=== PATIENT | male | born 1950 | race Hispanic/Latino ===

== ENCOUNTER → 2023-12-15 | Outpatient (CLI) | payer OTHER ==
[~2023-12-15] MED LIST: IOHEXOL-350 75 ML VIAL IV ONE
== END | disposition home or self-care (01) ==
LOC: RAH 10:45
PROVIDERS: ATTEND Internal Medicine
DX: K83.1 Obstruction of bile duct (principal)
CPT/HCPCS: 74170; Q9967

== ENCOUNTER → 2025-01-24 | Outpatient (CLI) | payer OTHER ==
[~2025-01-24] MED LIST changes: +IOHEXOL 350 MG/ML 100ML INFUS..BTL IV ONE; -IOHEXOL-350 75 ML VIAL IV ONE
--- NOTE | 2025-01-25 02:14 | HMCIMG ---
EXAM: CT Abdomen With and Without IV Contrast CLINICAL HISTORY: Other chronic pancreatitis; obstruction of bile duct. TECHNIQUE: Axial CT images of the abdomen and pelvis obtained before and after intravenous contrast administration. CONTRAST: With and without intravenous contrast. COMPARISON: None provided. FINDINGS Lung Bases Chronic dependent interstitial changes with subpleural ground-glass opacities and fine reticulation in the bilateral lower lobes. No pleural effusion. No focal consolidation. Liver Normal size and parenchymal attenuation. Pneumobilia within the left hepatic lobe. No focal lesion. Gallbladder and Bile Ducts Gallbladder nondistended with normal wall. Air within the gallbladder, cystic duct, and common bile duct consistent with pneumobilia. No radiopaque gallstones. No intrahepatic or extrahepatic biliary dilatation. Pancreas Parenchymal contours preserved. No acute peripancreatic fluid or necrosis. No calcifications. Spleen Normal size and enhancement. Adrenal Glands Normal bilaterally. Kidneys, Ureters, and Bladder Kidneys symmetrical with preserved cortical thickness. No hydronephrosis, hydroureter, or calculi. Mild bilateral perinephric fat stranding. Urinary bladder normal in contour. Stomach and Bowel Stomach and bowel loops unremarkable. Mild colonic diverticulosis without evidence of diverticulitis. No bowel obstruction. No pneumoperitoneum. Appendix Appendix measures approximately 0.3 cm; normal in calibre without surrounding inflammation. Peritoneum No free air or free fluid. Lymph Nodes Right iliac fossa mesenteric lymphadenitis with nodes measuring up to 1.4 ??? 1.0 cm. No additional lymphadenopathy. Reproductive Organs As visualized, no abnormality. Vasculature Abdominal aorta normal in calibre. No aneurysm. Mesenteric vessels opacify normally. Bones Lumbar spine shows degenerative spondylosis with vacuum phenomenon at L5???S1. No acute osseous abnormality. Here is the re-structured, clinically weighted, consolidated Impression following your rule: IMPRESSION * Pneumobilia involving the common bile duct, cystic duct, gallbladder, and left hepatic lobe. * Chronic dependent interstitial changes with subpleural ground-glassing in both lower lungs. * Right iliac fossa mesenteric lymphadenitis (1.4 ??? 1.0 cm). * Appendix normal; no acute intra-abdominal pathology. * Mild bilateral perinephric fat stranding, mild colonic diverticulosis, and lumbar spondylosis with L5???S1 vacuum phenomenon???collectively minor ancillary findings without acute significance. * Radiologic???clinical correlation: No CT evidence of acute abdomen; pneumobilia and lung-base changes should be interpreted based on clinical and procedural history. /[place]
== END | disposition home or self-care (01) ==
LOC: RAH 08:16
PROVIDERS: ATTEND Internal Medicine
DX: K57.30 Diverticulosis of large intestine without perforation or abscess without bleeding (principal); K86.1 Other chronic pancreatitis; K83.1 Obstruction of bile duct; J84.9 Interstitial pulmonary disease, unspecified; M47.817 Spondylosis without myelopathy or radiculopathy, lumbosacral region
CPT/HCPCS: 74170; Q9967